=== PATIENT | male | born 1945 | race Two or more races ===

== ENCOUNTER 2022-07-24 05:23 | Day surgery (SDC) | payer OTHER ==
[2022-07-23 15:20] VITALS: BMI 24.0
[2022-07-24 10:19] VITALS: RESP 18
[2022-07-24] MEDS ORDERED: ROPIVACAINE HCL 0.5% 30ML VIAL ONE (11:28)
[2022-07-24] MEDS ORDERED: FENTANYL CITRATE/PF 50 MCG/ML VIAL ONE ×2 (11:29→11:50)
[2022-07-24] MEDS ORDERED: PROPOFOL 20 ML ONE ×2 (11:49)
[2022-07-24] MEDS ORDERED: DEXAMETHASONE SOD PHOSPHATE 4 MG/1 ML VIAL ONE (11:50)
[2022-07-24] MEDS ORDERED: LIDOCAINE HCL/PF 2% SDV 5ML VIAL ONE (11:50)
[2022-07-24] MEDS ORDERED: ONDANSETRON 4 MG/2 ML VIAL ONE (11:50)
[2022-07-24] MEDS ORDERED: PHENYLEPHRINE HCL 10 MG/1 ML SINGLE DOSE VIAL ONE (11:52)
[2022-07-24] MEDS ORDERED: SUCCINYLCHOLINE CHLORIDE 200 MG/10 ML SYRINGE ONE (12:24)
[2022-07-24] MEDS ORDERED: ceFAZolin SODIUM 1 GM VIAL IVPB ONE (12:34)
[2022-07-24] MEDS ORDERED: ACETAMINOPHEN 1000 MG/100 ML BAG IVPB ONE (13:47)
[2022-07-24] MEDS ORDERED: ONDANSETRON 4 MG/2 ML VIAL IVPUSH PRN (13:47)
[2022-07-24] MEDS ORDERED: LACTATED RINGERS SOLUTION 1,000 ML IV SCH (14:00)
[2022-07-24] MEDS ORDERED: ACETAMINOPHEN INJECTION 100 ML IVPB ONE (14:14)
[2022-07-24 16:32] VITALS: BP 114/65; PULSE 60; TEMP 97.8
== END 2022-07-24 15:37 | disposition home or self-care (01) ==
LOC: JASU-SURG 05:23
PROVIDERS: ATTEND Orthopaedic Surgery
PROC: 0RNJ4ZZ Release Right Shoulder Joint, Percutaneous Endoscopic Approach (ICD-10-PCS; principal; 2022-07-24 11:45)
DX: M75.101 Unspecified rotator cuff tear or rupture of right shoulder, not specified as traumatic (principal)
CPT/HCPCS: 82962; 94760; C1713

== ENCOUNTER 2024-11-23 01:17 | Emergency (ER) | payer MEDICARE, OTHER ==
[2024-11-23 01:30] VITALS: BP 143/74; PULSE 70; RESP 18; TEMP 97.7; BMI 25.4
[2024-11-23] MEDS ORDERED: MECLIZINE HCL 12.5 MG TABLET ONE (02:14)
[2024-11-23] MEDS ORDERED: ONDANSETRON 4 MG/2 ML VIAL ONE (02:14)
[2024-11-23] MEDS: ONDANSETRON 4 MG/2 ML VIAL IVPUSH ONE (02:29)
[2024-11-23] MEDS: SODIUM CHLORIDE 1,000 ML IV STA (02:29)
[2024-11-23] MEDS: MECLIZINE HCL 12.5 MG TABLET PO ONE (02:35)
[2024-11-23 03:04] LABS: ABSOLUTE IMMATURE GRANULOCYTES 0.02 x10^3/uL (0.0-0.031); BASOPHILS # 0.05 x10^3/uL (0.01-0.08); EOSINOPHIL % 2.8 % (0.8-7.0); EOSINOPHILS # 0.19 x10^3/uL (0.04-0.54); HEMATOCRIT 37.1 % (40.1-51.0); HEMOGLOBIN 11.7 g/dL (13.7-17.5); MCHC 31.5 g/dl (32.3-36.5); MEAN CELL VOLUME 91.8 fl (79.0-92.2); MONOCYTE % 8.8 % (5.3-12.2); PLATELET COUNT 107 x10^3/uL (163-337); RDW 13.3 % (12.2-16.6)
[2024-11-23 03:12] LABS: INR 0.89 (0.83-1.09); PROTHROMBIN TIME (PATIENT) 9.8 SEC (9.7-13.0)
[2024-11-23 03:15] LABS: ACTIVATED PTT 31.4 SECONDS (25.2-36.5)
[2024-11-23 03:28] LABS: MEAN PLT VOLUME 10.2 fl (9.4-12.4)
[2024-11-23 03:38] LABS: ALBUMIN 3.6 g/dl (3.4-5.0); BLOOD UREA NITROGEN 19.1 mg/dL (7-18); CALCIUM 8.8 mg/dL (8.5-10.1); MAGNESIUM 1.7 mg/dL (1.8-2.4)
[2024-11-23 03:42] LABS: CREATININE 1.1 mg/dL (0.55-1.3); PHOSPHOROUS 3.4 mg/dL (2.5-4.9)
[2024-11-23 03:43] LABS: BILIRUBIN,TOTAL 0.4 mg/dL (0.2-1); TOT PROT 6.7 g/dl (6.4-8.2)
[2024-11-23 03:48] LABS: PH,URINE 5.5 (5.0-8.0); URINE APPEARANCE CLEAR; URINE BILIRUBIN NEGATIVE (NEGATIVE); URINE COLOR YELLOW; URINE GLUCOSE (UA) NEGATIVE (NEGATIVE); URINE KETONE NEGATIVE (NEGATIVE); URINE LEUK ESTERASE NEGATIVE (NEGATIVE); URINE NITRITE NEGATIVE (NEGATIVE); URINE PROTEIN NEGATIVE (NEGATIVE); URINE UROBILINOGEN 0.2 mg/dL (0.2-1.0)
[2024-11-23] MEDS ORDERED: MAGNESIUM SULFATE IN WATER 2 GM/50 ML IVPB IVPB ONE (04:30)
[2024-11-23] MEDS: MAGNESIUM SULFATE IN WATER 2 GM/50 ML IVPB IVPB ONE (04:41)
[2024-11-23] MEDS: LACTATED RINGERS SOLUTION 1000 ML INFUS.BAG IV ONE (04:41)
== END 2024-11-23 05:42 | disposition home or self-care (01) ==
LOC: JER 01:17
PROC: 3E033GC Introduction of Other Therapeutic Substance into Peripheral Vein, Percutaneous Approach (ICD-10-PCS; principal; 2024-11-23)
PROC: 3E033GC Introduction of Other Therapeutic Substance into Peripheral Vein, Percutaneous Approach (ICD-10-PCS; 2024-11-23)
PROC: 3E0337Z Introduction of Electrolytic and Water Balance Substance into Peripheral Vein, Percutaneous Approach (ICD-10-PCS; 2024-11-23)
DX: K52.9 Noninfective gastroenteritis and colitis, unspecified (principal); R53.1 Weakness; R42 Dizziness and giddiness; R11.0 Nausea
CPT/HCPCS: 36415; 80053; 81003; 83735; 84100; 85025; 85610; 85730; 86850; 86900; 86901; 87086; 93005; 93010; 99284-25